=== PATIENT | female | born 1995 | race Caucasian/White ===

== ENCOUNTER → 2022-02-28 | Outpatient (CLI) | payer OTHER, SELFPAY ==
--- NOTE | 2022-02-28 16:12 | RAD_ITS ---
STUDY: X-RAY - RIGHT SHOULDER REASON FOR EXAM: Female, 26 years old. PAIN TECHNIQUE: 4 view(s) of the shoulder. COMPARISON: None. FINDINGS: Normal glenohumeral articulation. Normal acromioclavicular joint. Normal acromion. Normal humeral head and visualized proximal humerus. The soft tissue structures are unremarkable. Normal visualized pulmonary apex. RAD/Shoulder min 2 Views IMPRESSION: Normal x-ray examination of the shoulder. Electronically Signed: Chevy Marshall MD at 0:20 EDT ,
== END | disposition home or self-care (01) ==
PROVIDERS: PCP Family Medicine; Referring Provider Family Medicine; Visit Provider Family Medicine
DX: M25.511 Pain in right shoulder (principal)
CPT/HCPCS: 73030

== ENCOUNTER → 2022-02-28 | Outpatient (CLI) | payer OTHER, SELFPAY ==
[2022-02-28 18:01] LABS: Anion Gap 6 (5-15); BUN 13 mg/dL (7-18); BUN/Creat Ratio 11.8 RATIO (10-20); Calcium,Total 8.8 mg/dL (8.5-10.1); Chloride 109 mmol/L (98-107); Cholesterol 187 mg/dL (200); EST Glomerular Filtration Rate 63 mL/min (>60); Est Glom Filt Rate - Afr Amer 76 mL/min (>60); Glucose 85 mg/dL (74-106); High Density Lipoprotein 39 mg/dL; Potassium 3.6 mmol/L (3.5-5.1); Sodium Level 142 mmol/L (136-145); Thyroid Stim Hormone (TSH) 1.93 uIU/mL (0.358-3.74); Triglycerides 237 mg/dL; Very Low Density Lipoprotein 47 mg/dL (5-40)
== END | disposition home or self-care (01) ==
LOC: MFPLAB 16:23
PROVIDERS: PCP Family Medicine; Visit Provider Family Medicine
DX: Z00.00 Encounter for general adult medical examination without abnormal findings (principal)
CPT/HCPCS: 36415; 80048; 80061; 84403; 84443

== ENCOUNTER → 2022-03-14 | Outpatient (CLI) | payer OTHER, SELFPAY | END | disposition home or self-care (01) | LOC: MFPLAB 15:30 | PROVIDERS: PCP Family Medicine; Referring Provider Family Medicine; Visit Provider Family Medicine | DX: E66.8 Other obesity (principal) | CPT/HCPCS: 36415; 84403 ==

== ENCOUNTER 2022-04-18 15:00 | Outpatient (RCR) | payer OTHER, SELFPAY ==
--- NOTE | 2022-03-14 12:05 | HP.PTEVAL ---
Patient's Visit Information RUBEN BROWNLEE is a 26 year old F referred to Physical Therapy by Dr. Niels Magaña MD with a diagnosis of Right shoulder pain. Date of Evaluation: 03/14/22 Physical Therapist: Kaushal Scott - Visit Plan Frequency: 2x /Week Duration: 6 Weeks Plan: Continue with improving right shoulder PROM, AAROM, AROM, and RTC/scapular strengthening. Use manual therapy and modalities as needed for pain control. He presents with shoulder impingement and possible RTC tear. Will transfer POC to another PT at this time. - Subjective Pt. is a 26 y.o. male who has been having right shoulder pain for several of months but has gotten worse in the last couple of months. 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 His PLOF includes no history of right shoulder pain in the past before this. Pt. is right handed. He had x-ray of his right shoulder which was negative. Pt. denies any neck pain or headaches. He denies any radicular symptoms in his right arm normally. Pt. has difficulty with reaching overhead, reaching out to the side, occasionally sleeping, lifting things overhead, housework, yard work, and work activity. Pt. works for [employer] in [employer]. His goal with physical therapy is to get rid of the shoulder pain. He has never had physical therapy before. Pt. rates right shoulder pain at 7/10 currently, at worst 9/10, at best 5/10 and describes the pain as constant, dull, achy, and sharp. He does not take any pain medication. Pt. PMH includes smoker about 1 pack a day for 11 years and wisdom teeth removed. Pt. hobbies include ice skating, playing video games, and being outdoors. - Objective Palpation- Vague tenderness over anterior right shoulder. Cervical AROM- WNL for all motions. Left shoulder AROM flexion 165 degrees, abduction 165 degrees, ER 88 degrees, IR 70 degrees. Right shoulder AROM flexion 120 degrees, abduction 104 degrees, ER 80 degrees, IR 68 degrees. Left shoulder PROM- WNL for all motions. Right shoulder PROM- flexion 125 degrees, abduction 120 degrees, ER 86 degree, IR 72 degrees. Left shoulder strength flexion 4+/5, abduction 4+/5, ER 5/5, IR 5/5, elbow flexion 5/5, elbow extension 5/5. Right shoulder strength flexion 3-/5, abduction 3-/5, ER 4/5, IR 4+/5, elbow flexion 5/5, elbow extension 5/5. Sensation- Bilateral UE sensation WNL - Special Tests R Shoulder Supine Impingement Test - RC Tear: Positive R Shoulder Lift Off Test - Subscapular Tear: Positive R Shoulder Drop Sign - IS Test: Negative R Shoulder Wolfe Carlos - Impingement: Positive - Balance/Special Test Scores Quick DASH Score: 45.4525 - Goals Goal 1:: Pt. will improve right shoulder AROM flexion and abduction > 150 degrees in order to improve reaching overhead. Goal Time Frame: 4-6 Weeks Goal 2:: Pt. will improve right shoulder strength to 4+/5 for all motions in order to complete ADL's. Goal Time Frame: 4-6 Weeks Goal 3:: Pt. will rate shoulder pain at worst 3/10 with reaching overhead and out to the side. Goal Time Frame: 4-6 Weeks Goal 4:: Pt. will be able to lift at least 20# overhead with right shoulder pain < 3/10. Goal Time Frame: 4-6 Weeks Goal 5:: Pt. will be able to complete ADL's and work activity with right shoulder pain < 3/10. Goal Time Frame: 4-6 Weeks Goal 6:: Pt. will improve Quick Dash score < 30% disability in order to improve ADL's. Goal Time Frame: 4-6 Weeks - Rehabilitation Potential Physical Therapy Diagnosis: Decreased right shoulder ROM, strength, and pain Rehabilitation Potential: Good - Anticipated Interventions Patient/Client Instruction: Educate patient on: Condition, Plan of Care For the Purpose of:: To decrease pain, To increase ROM, To improve ability to perform ADL's, To improve performance and independence with ADL's, To increase flexibility/ROM, To assume or resume ADL's, To improve tolerance to ADL's Therapeutic Exercise to Include: Strength training, Postural training, Passive ROM, Active ROM, Scapular Strength/Stabilization Comment: Continue with improving right shoulder PROM, AAROM, AROM, and RTC/scapular strengthening. For the Purpose of:: To decrease pain, To increase ROM, To improve ability to perform ADL's, To improve performance and independence with ADL's, To increase flexibility/ROM, To improve tolerance to ADL's Manual Therapy Techniques to Include: Mobilization, Passive ROM, Soft tissue mobilization For the Purpose of:: To decrease pain, To increase ROM, To improve performance and independence with ADL's, To increase flexibility/ROM TENS: Yes IF ES: Yes Cryotherapy (ice pack, ice massage): Yes For the Purpose of:: To decrease pain, To decrease swelling/inflammation, To increase ROM, To improve ability to perform ADL's, To increase flexibility/ROM, To improve tolerance to ADL's Thank you for the opportunity to evaluate your patient. For Medicare and Medicare HMO plans, please review the plan of care and approve it. It will need to be FAXED BACK to us at [phone] for Medicare purposes. For Medicare only, by signing this I certify the plan of care. Please let me know if there are questions or concerns regarding this plan of care. Physician Signature: Date:
--- NOTE | 2022-04-18 15:04 | HP.PTREVAL_ITS ---
Dr. Niels Magaña MD, It has been my pleasure to treat RUBEN BROWNLEE over the last 7 visits for Right shoulder pain. Please see the progress note below for an update on the physical therapy plan of care! Subjective: Patient goes to see MD directly after this apt. Patient reports that the shoulder is better but its great. It is not constantly hurting but still has its days. Pain is along the suprapsinatus in the shoulder. No pain radiating down the arm. Has noticed decreased fulfillment representative strength in the hand. He has not had any injections in the shoulder- no MRI. he is doing bands at home IR/ER, and extension of the elbow (Green). Objective/Function: Posture: FH, RS can correct but does not maintain- guards due to pain with testing. Palpation: tender along supraspinatus, ROM: AROM- Shoulder Flexion: 140 degrees, Extn: WFL, Abd: 110 degrees, IR/ER: WFL. Strength: Scap: fair minus, all motions: 4/5 throughout available range. Elbow: 5/5, Airline Radio Operator: Left: 100 Right: 80. - Special Tests. R Shoulder Supine Impingement Test - RC Tear: Positive. R Shoulder Lift Off Test - Subscapular Tear: Positive. R Shoulder Drop Sign - IS Test: Negative. R Shoulder Wolfe Carlos - Impingement: Positive Plan Plan: Return to MD for further evaluation. Balance/Gait/Functional tests - Balance/Special Test Scores Quick DASH Score: 29.5450 Goals Goal 1:: Pt. will improve right shoulder AROM flexion and abduction > 150 degrees in order to improve reaching overhead. Goal Time Frame: 4-6 Weeks Goal Progress: Progressing Goal 2:: Pt. will improve right shoulder strength to 4+/5 for all motions in order to complete ADL's. Goal Time Frame: 4-6 Weeks Goal Progress: Progressing Goal 3:: Pt. will rate shoulder pain at worst 3/10 with reaching overhead and out to the side. Goal Time Frame: 4-6 Weeks Goal Progress: Progressing Goal 4:: Pt. will be able to lift at least 20# overhead with right shoulder pain < 3/10. Goal Time Frame: 4-6 Weeks Goal Progress: Progressing Goal 5:: Pt. will be able to complete ADL's and work activity with right shoulder pain < 3/10. Goal Time Frame: 4-6 Weeks Goal Progress: Progressing Goal 6:: Pt. will improve Quick Dash score < 30% disability in order to improve ADL's. Goal Time Frame: 4-6 Weeks Goal Progress: Progressing Anticipated Interventions Patient/Client Instruction: Educate patient on: Condition, Plan of Care For the Purpose of:: To decrease pain, To increase ROM, To improve ability to perform ADL's, To improve performance and independence with ADL's, To increase flexibility/ROM, To assume or resume ADL's, To improve tolerance to ADL's Therapeutic Exercise to Include: Strength training, Postural training, Passive ROM, Active ROM, Scapular Strength/Stabilization Comment: Continue with improving right shoulder PROM, AAROM, AROM, and RTC/scapular strengthening. For the Purpose of:: To decrease pain, To increase ROM, To improve ability to perform ADL's, To improve performance and independence with ADL's, To increase flexibility/ROM, To improve tolerance to ADL's Manual Therapy Techniques to Include: Mobilization, Passive ROM, Soft tissue mobilization For the Purpose of:: To decrease pain, To increase ROM, To improve performance and independence with ADL's, To increase flexibility/ROM TENS: Yes IF ES: Yes Cryotherapy (ice pack, ice massage): Yes For the Purpose of:: To decrease pain, To decrease swelling/inflammation, To increase ROM, To improve ability to perform ADL's, To increase flexibility/ROM, To improve tolerance to ADL's Please do not hesitate to contact me at [phone] by phone or if you have questions or concerns regarding this new plan of care! Sincerely, Eunice Goode DPT
== END 2022-04-18 19:00 | disposition home or self-care (01) ==
LOC: PT 15:00
PROVIDERS: PCP Family Medicine; Referring Provider Family Medicine; Visit Provider Family Medicine
DX: M25.519 Pain in unspecified shoulder (principal)
CPT/HCPCS: 97110; 97140; 97161; 97164

== ENCOUNTER → 2022-04-18 | Outpatient (CLI) | payer OTHER, SELFPAY | END | disposition home or self-care (01) | PROVIDERS: Visit Provider Family Medicine | DX: E66.8 Other obesity (principal) | CPT/HCPCS: 36415; 84403 ==

== ENCOUNTER → 2022-05-30 | Outpatient (CLI) | payer OTHER, SELFPAY ==
--- NOTE | 2022-05-30 16:22 | RAD_ITS ---
HISTORY: FOREIGN BODY OF LEG. TECHNIQUE: XR Femur Min 2 Views. COMPARISON: None. FINDINGS: BONES : No acute fracture identified. Mineralization unremarkable. JOINTS: No dislocation. Joint spaces maintained. SOFT TISSUES: Multiple small metallic foreign bodies in the anterolateral soft tissues of the thigh. RAD/Femur Min 2 Views IMPRESSION: No acute fracture or dislocation identified in the left femur.Small foreign bodies in the soft tissues. Electronically Signed: Celina Lopez MD at 15:20 EDT ,
== END | disposition home or self-care (01) ==
PROVIDERS: PCP Family Medicine; Referring Provider Family Medicine; Visit Provider Family Medicine
DX: S80.852A Superficial foreign body, left lower leg, initial encounter (principal); R79.89 Other specified abnormal findings of blood chemistry
CPT/HCPCS: 36415; 73552; 84403

== ENCOUNTER → 2022-06-20 | Outpatient (CLI) | payer OTHER, SELFPAY ==
--- NOTE | 2022-06-20 17:03 | MRI_ITS ---
STUDY: MRI RIGHT SHOULDER REASON FOR EXAM: Right shoulder pain for one year, decreased range of motion, lifting injury. TECHNIQUE: Standardized fat and water weighted pulse sequences were obtained in all 3 orthogonal planes. COMPARISON: None. FINDINGS: There is mild supraspinatus/infraspinatus tendinosis (T2 coronal images 10-13) without discrete tendon tear. Normal subscapularis tendon. Normal teres minor tendon. Normal supraspinatus muscle. Normal infraspinatus muscle. Normal subscapularis muscle. Normal teres minor muscle. Normal glenohumeral articulation. Normal humeral head and visualized proximal humerus. Normal biceps labral complex. Normal intracapsular long biceps tendon. Normal labrum. Normal capsulo- ligamentous complex. Normal acromioclavicular articulation. There is a Type I morphology (flat undersurface), with a neutral orientation. There is no subacromial-subdeltoid bursal fluid. Normal visualized coracohumeral and coracoacromial ligaments. Normal deltoid muscle. Normal trapezius muscle. MRI/Upper Ext Joint Only(Routine) IMPRESSION: Mild supraspinatus/infraspinatus tendinosis without demonstrated rotator cuff tear. Electronically Signed: Ja Vigil MD at 6:58 EDT ,
== END | disposition home or self-care (01) ==
LOC: MRI 16:44
PROVIDERS: PCP Family Medicine; Visit Provider Family Medicine
DX: M25.511 Pain in right shoulder (principal)
CPT/HCPCS: 73221

== ENCOUNTER → 2022-11-29 | Outpatient (CLI) | payer OTHER, SELFPAY ==
[2022-11-29 18:11] LABS: ALB/GLOB Ratio 1.1 RATIO (0.9-2.4); AST(SGOT) 61 U/L (15-37); Alanine Aminotransfer ALT/SGPT 148 U/L (16-61); Albumin, Serum 4.2 g/dL (3.2-5.0); Alkaline Phosphatase 104 U/L (45-117); Anion Gap 12 (5-15); BUN 10 mg/dL (7-18); BUN/Creat Ratio 9.4 RATIO (10-20); Calcium,Total 9.4 mg/dL (8.5-10.1); Chloride 108 mmol/L (98-107); Creatinine, Serum 1.06 mg/dL (0.70-1.30); EST Glomerular Filtration Rate 88 mL/min (>60); Est Glom Filt Rate - Afr Amer 106 mL/min (>60); Follicle Stimulating Hormone 4.4 mIU/mL; Globulin 3.7 g/dL (2.2-4.2); Glucose 99 mg/dL (74-106); Luteinizing Hormone 2.6 mIU/mL; Potassium 3.5 mmol/L (3.5-5.1); Prolactin 11.2 ng/mL; Protein, Total 7.9 g/dL (6.4-8.2); Sodium Level 143 mmol/L (136-145); T4 Free Direct 0.82 ng/dL (0.76-1.46); Thyroid Stim Hormone (TSH) 3.03 uIU/mL (0.358-3.74)
[2022-12-04 11:09] LABS: Testosterone, % Free 2.12 % (1.50-4.20); Testosterone, Free 4.52 ng/dL (5.00-21.00)
[2022-12-06 19:00] LABS: Insulin Like Growth Factor 130 ng/mL (101-307); Testosterone, Total 213 ng/dL (264-916)
== END | disposition home or self-care (01) ==
LOC: MTLAB 16:30
PROVIDERS: PCP Family Medicine; Referring Provider Internal Medicine Endocrinology, Diabetes & Metabolism; Visit Provider Internal Medicine Endocrinology, Diabetes & Metabolism
DX: E29.1 Testicular hypofunction (principal)
CPT/HCPCS: 36415; 80053; 82533; 83001; 83002; 84146; 84305; 84402; 84403; 84439; 84443

== ENCOUNTER → 2023-05-22 | Outpatient (CLI) | payer OTHER, SELFPAY ==
[2023-05-22 18:17] LABS: Absolute Lymphocyte Count 2.95 X10^3/uL (0.83-4.51); Absolute Neutrophil Count 10.5 X10^3/uL (2.0-7.7); Basophil# 0.04 X10^3/uL; Basophil% 0.3 % (0-1); Eosinophil# 0.03 X10^3/uL; Eosinophils% 0.2 % (0-5); Hematocrit 51.3 % (40-54); Hemoglobin 17.4 g/dL (13.0-16.5); Lymphocyte # 2.95 X10^3/ul (0.83-4.51); Lymphocyte % 20.7 % (19-41); Mean Corp Hgb Conc 33.9 g/dL (32-36); Mean Corpuscular Hgb 31.9 pg (27.0-32.0); Mean Corpuscular Volume 94.1 fL (80-94); Mean Platelet Vol. 11.1 fl (6.2-12.0); Monocyte% 4.9 % (0-10); NRBC Flagged by Analyzer 0 % (0-5); Neutrophil # 10.52 X10^3/uL (2.7-7.7); Neutrophil % 73.6 % (47-70); Platelet Count 331 K/mm3 (150-450); RBC Distribution Width CV 12.8 % (11.6-14.6); RBC Distribution Width SD 43.7 fl (35.1-43.9); Red Blood Count 5.45 M/mm3 (4.6-6.2); White Blood Count 14.3 K/mm3 (4.4-11.0)
[2023-05-30 11:09] LABS: Testosterone, Free 11.08 ng/dL (5.00-21.00); Testosterone, Total 326 ng/dL (264-916)
== END | disposition home or self-care (01) ==
LOC: MFPLAB 16:34
PROVIDERS: PCP Family Medicine; Visit Provider Internal Medicine Endocrinology, Diabetes & Metabolism
DX: E29.1 Testicular hypofunction (principal)
CPT/HCPCS: 36415; 84402; 84403; 85025

== ENCOUNTER 2024-05-19 07:30 | Day surgery (SDC) | payer OTHER, SELFPAY ==
--- NOTE | 2024-05-13 12:23 | EKG12_ITS ---
Test Reason : PREOP Blood Pressure : / mmHG Vent. Rate : 069 BPM Atrial Rate : 069 BPM P-R Int : 144 ms QRS Dur : 088 ms QT Int : 408 ms P-R-T Axes : 038 046 038 degrees QTc Int : 437 ms Normal sinus rhythm with sinus arrhythmia Normal ECG Confirmed by SANDER GALINDO, PONCHO ([id number]), editorial specialist JUAN BENAVIDEZ ([id number]) on 05/18/2024 1:32:39 PM Referred By: Viktor Galvan Confirmed By:JOSELUIS BOUCHER MD
[2024-05-13 13:03] LABS: Absolute Lymphocyte Count 3.58 X10^3/uL (0.83-4.51); Absolute Neutrophil Count 6.1 X10^3/uL (2.0-7.7); Basophil# 0.06 X10^3/uL; Basophil% 0.6 % (0-1); Eosinophil# 0.11 X10^3/uL; Hematocrit 46.9 % (40-54); Hemoglobin 15.6 g/dL (13.0-16.5); Lymphocyte # 3.58 X10^3/ul (0.83-4.51); Lymphocyte % 33.2 % (19-41); Mean Corp Hgb Conc 33.3 g/dL (32-36); Mean Corpuscular Hgb 32.7 pg (27.0-32.0); Mean Corpuscular Volume 98.3 fL (80-94); Mean Platelet Vol. 10.6 fl (6.2-12.0); Monocyte# 0.89 X10^3/uL; Monocyte% 8.3 % (0-10); NRBC Flagged by Analyzer 0 % (0-5); Neutrophil # 6.12 X10^3/uL (2.7-7.7); Neutrophil % 56.8 % (47-70); Platelet Count 225 K/mm3 (150-450); RBC Distribution Width CV 12.8 % (11.6-14.6); RBC Distribution Width SD 46.7 fl (35.1-43.9); Red Blood Count 4.77 M/mm3 (4.6-6.2); White Blood Count 10.8 K/mm3 (4.4-11.0)
[2024-05-18 11:09] LABS: Testosterone, % Free 2.41 % (1.50-4.20); Testosterone, Free 6.89 ng/dL (5.00-21.00); Testosterone, Total 286 ng/dL (264-916)
[2024-05-19] VITALS (11 sets, daily range): BP systolic 120–136; BP diastolic 70–88; PULSE 52–82; RESP 16–18; TEMP 36.2–36.9; O2SAT 90–98; BMI 31.6
[2024-05-19] MEDS: Lactated Ringers 1,000 ML 15 ML IV ×2 (08:07→11:36)
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
[2024-05-19] MEDS: Cefazolin 2 GM in 0.9% Normal Saline (100mL Bag) 100 ML IV (09:41)
[2024-05-19] MEDS: Epinephrine (1 mg/ml) 1 MG/ML VIAL (10:12)
--- NOTE | 2024-05-19 10:47 | PCM.OPRPT ---
Problems Associated Problem List Diagnoses (1) Tendinosis of right shoulder: (2) Impingement of right shoulder: (3) Bursitis of right shoulder: Report of Operation Date of Procedure: 05/19/24 Pre-Operative Diagnosis: Right shoulder bursitis and impingement syndrome Post-Operative Diagnosis: Same Surgery/Procedure Performed:: Right shoulder arthroscopy subacromial decompression and debridement Surgeon: Viktor Galvan Type of Anesthesia: Block,Regional and General Anesthesiologist: Sumanth Alvarez Estimated Blood Loss (mL): 25 Description of Procedure: Patient brought to the operating room theater. Placed supine on the table. General anesthesia induced. 2 g IV Ancef administered prior to the start of the procedure. Patient transferred right side up lateral decubitus beanbag positioner. Axillary roll used. All bony prominences padded. SCDs on the legs. Upper extremity prepped and draped in the usual sterile fashion with chlorhexidine-based prep solution allowing over 3 minutes drying time prior to draping. Preoperative timeout performed confirm the site patient and surgery. Arm and 10 pounds of inline traction with 35 degrees of abduction. Began by inserting the arthroscope into the intra-articular portion of the shoulder through a standard posterior arthroscopy portal. Did a full diagnostic arthroscopy. Cartilage on the glenoid and humeral head appeared normal. No loose bodies axillary recess entered no loose bodies normal undersurface the rotator cuff tendon as well as subscapularis and biceps was normal normal tang. Arthroscope withdrawn inserted the subacromial space. I used a standard anterior arthroscopy portal through the rotator interval as well as an accessory lateral portal. There is a mild amount of inflammatory appearing bursitis. Subacromial space was quite tight. Bursectomy performed down to the lateral gutters. Arthroscopy pictures taken and saved throughout the case. Rotator cuff probed and no tears found. Anterolateral leading edge of the acromion was downsloping I performed a subacromial decompression down to flat margins using a high-speed bur instrument for approximately 4 mm. Case terminated wound thoroughly irrigated. Portals closed with 3-0 Monocryl suture. Skin cleaned with wet and dry dressing followed by application of Steri-Strips Adaptic 4 x 4 gauze ABD dressing cloth tape and an abduction pillow sling for the upper extremity. Patient woken up from the general anesthetic transferred off the operating room table and taken postanesthetic care unit in stable condition. All sponge needle instrument counts were correct no complications. cpt 92065? Complications none Admit VTE Documentation VTE Present on Admission: No VTE Mechan Device Prophylaxis: SCD's VTE Pharm Prophylaxis ordered?: No Reason prophylaxis not ordered:: Treatment Not Indicated Procedures Musculoskeletal 20xxx-29xxx: Other Procedure See Report
--- NOTE | 2024-05-19 10:53 | DCINST_ITS ---
Discharge Instructions Diet Discharge Diet: No restrictions Activity Ice area for (Minutes): 10 Lifting Restrictions: pendulums exercises only Additional Activity Instructions:: hand wrist elbow rom as tolerated Dressing / Incision Call your doctor if your incision/area has: Continuous Slow Oozing, Sudden Increased Bleeding, Increased Pain/ Swelling, Increased Redness, Foul Smelling Discharge and Swelling at the incision site Call your doctor if you observe: Fever of 101 or Higher and Numbness or Tingling Remove Dressing in: leave in place till F/U Cleanse incision/area with: Do not get Incision Wet Follow Up Care Please Follow Up With: Viktor Galvan MD When: 1 day and 2 weeks Test Results: Test results from this visit will be discussed in further detail at your follow- up appointment, if applicable. Discharge Plan Admission Attending Provider: Viktor Galvan Primary Care Provider: DONITA VIERA Consulting Providers: Mitchell Nichols; Nazario Beaver Instructions Print Language: Georgian Discharge Orders/Prescriptions Prescriptions: New oxycodone-acetaminophen [Endocet] 5-325 mg tablet 1 tab PO Q6H MDD 6 PRN (Reason: pain) 5 Days Qty: 20 0RF No Action omeprazole 20 mg capsule,delayed release(DR/EC) 20 mg PO DAILY Nicotrol NS 10 mg/mL spray,non-aerosol 2 spray intranasal Q60M PRN (Reason: nicotine cravings) Patient Comments: [NO ORIGINAL SIG] hydroxyzine pamoate 25 mg capsule 25 mg PO QHS clonidine HCl 0.1 mg tablet 0.1 mg PO BID paroxetine HCl 10 mg tablet 10 mg PO QDAY Alive Men's 50 Plus Multivit 120 mcg-150 mcg -50 mg tablet,chewable 1 tab PO DAILY magnesium 200 mg tablet 200 mg PO DAILY omega 4-tah-hwy-fish oil [Fish Oil] 300-1,000 mg capsule 1 cap PO DAILY Tart Richmond Extract 1,000 mg capsule 1,000 mg PO DAILY ibuprofen 600 mg tablet 600 mg PO Q8H PRN PRN (Reason: pain) testosterone [AndroGel] 20.25 mg/1.25 gram (1.62 %) gel in metered-dose pump 1 pump topical .5 days per week Qty: 75 5RF Referrals / Follow Up: Niels Magaña MD [Med Staff - Active Staff] - Viktor Galvan MD [Med Staff - Active Staff] - Disposition Disposition (needs filled in before D/C Order can be placed): Home, Self Care
--- NOTE | 2024-05-19 10:55 | PCM.POST.ANE ---
Anesthesia: Postop Eval I Current Vital Signs Temperature: 98.4 F Pulse Rate: 79 Blood Pressure: 129/88 Respiratory Rate: 18 Pulse Ox: 97 Oxygen Delivery Method: Room Air Assessment Airway patent: Yes Spontaneous unlabored respirations: Yes Mental status: Awake and Calm nausea: No Vomiting: No Anesthesia Complication: No Fluid Hydration Crystalloid volume administer (ml): 800 Total IV fluid infused: 800 Progress Note Anesthesia document: Postop Eval 1 completed: Yes
--- NOTE | 2024-05-19 11:18 | PCM.POSTANE2 ---
Anesthesia Postop Eval I Sum Postop Eval Completion status Anesthesia document: Postop Eval 1 completed: Yes Anesthesia Postop Eval I Summary Anesthesia Postop Eval I Summary: Anesthesia Postop Eval I: Assessment Summary Airway patent Yes 05/19/24 11:16 Spontaneous unlabored Yes 05/19/24 11:16 respirations Mental status Awake,Calm 05/19/24 11:16 nausea No 05/19/24 11:16 Vomiting No 05/19/24 11:16 Anesthesia Postop Eval I: Fluid Summary Crystalloid volume administer 800 05/19/24 11:16 (ml) Colloids volume administered ( ml) Blood Product volume administered (ml) Total IV fluid infused 800 05/19/24 11:16 Anesthesia Postop Eval I: Summary Notes Anesthesia Complication No 05/19/24 11:16 Anesthesia Complication Comment: Post-operative progress note Anesthesia: Postop Eval II Evaluation Mental status: Awake Pain Level: 0 nausea: No Vomiting: No
[2024-05-19] MEDS: HYDROcodone Bitartrate/Apap 5/325 Tablet PO (12:20)
== END 2024-05-19 13:36 | disposition home or self-care (01) ==
LOC: SDC 07:31 → AC 07:32
PROVIDERS: Internal Medicine Endocrinology, Diabetes & Metabolism; Referring Provider Orthopaedic Surgery Sports Medicine; Visit Provider Orthopaedic Surgery Sports Medicine
PROC: (CPT 29805; principal; 2024-05-19 09:20)
DX: M75.51 Bursitis of right shoulder (principal); M25.811 Other specified joint disorders, right shoulder; M67.813 Other specified disorders of tendon, right shoulder; M75.41 Impingement syndrome of right shoulder; F17.210 Nicotine dependence, cigarettes, uncomplicated; F41.9 Anxiety disorder, unspecified; F32.A Depression, unspecified; K21.9 Gastro-esophageal reflux disease without esophagitis; Z79.899 Other long term (current) drug therapy
CPT/HCPCS: 29822; 29826; 36415; 84402; 84403; 85025; 93005; J7120; J2405

== ENCOUNTER → 2024-05-20 | Outpatient (CLI) | payer OTHER, SELFPAY ==
--- NOTE | 2024-05-20 13:30 | RAD_ITS ---
STUDY: X-RAY - LEFT SHOULDER REASON FOR EXAM: Male, 29 years old. Pain. TECHNIQUE: 4 views of the left shoulder. COMPARISON: None. FINDINGS: Normal glenohumeral articulation. Normal acromioclavicular joint. Normal acromion. Normal humeral head and visualized proximal humerus. The soft tissue structures are unremarkable. There is no demonstrated fracture. Normal visualized pulmonary apex. RAD/Shoulder min 2 Views IMPRESSION: Normal x-ray examination of the left shoulder. Electronically Signed: Shaun Chun MD at 14:53 EDT ,
== END | disposition home or self-care (01) ==
LOC: MTRAD 13:30
PROVIDERS: Referring Provider Orthopaedic Surgery Sports Medicine; Visit Provider Orthopaedic Surgery Sports Medicine
DX: M25.512 Pain in left shoulder (principal)
CPT/HCPCS: 73030

== ENCOUNTER 2024-12-26 11:47 | Emergency (ER) | payer OTHER, SELFPAY ==
[2024-12-26 11:49] VITALS: BP 144/86; PULSE 88; RESP 15; TEMP 36.4; O2SAT 99; BMI 31.0
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
[2024-12-26] MEDS: Ketorolac 15 MG/ML Vial IM (12:11)
--- NOTE | 2024-12-26 12:22 | RAD_ITS ---
PROCEDURE: KNEE 4 OR MORE VIEWS REASON FOR EXAM: 29-year-old male, left knee pain, history of bursitis with recent improvement, now symptoms returned. TECHNIQUE: 4 view(s) of the left knee COMPARISON: None. FINDINGS: No fracture. No suspicious bone lesion. Normal alignment. No effusion. Soft tissues are unremarkable. RAD/Knee 4 or More Views IMPRESSION: No acute finding on radiographic imaging. Reading Location: [id number]
[2024-12-26] MEDS: predniSONE 20 MG Tablet 60 MG PO (13:21)
== END 2024-12-26 13:42 | disposition home or self-care (01) ==
PROVIDERS: Emergency Provider Emergency Medicine; Visit Provider Emergency Medicine
DX: M25.562 Pain in left knee (principal)
CPT/HCPCS: 73564; 96372; 99282

== ENCOUNTER → 2025-01-06 | Outpatient (CLI) | payer OTHER, SELFPAY ==
[2025-01-06 12:13] LABS: Absolute Lymphocyte Count 4.22 X10^3/uL (0.83-4.51); Absolute Neutrophil Count 6.7 X10^3/uL (2.0-7.7); Basophil# 0.06 X10^3/uL; Basophil% 0.5 % (0-1); Eosinophil# 0.07 X10^3/uL; Eosinophils% 0.6 % (0-5); Hematocrit 47.8 % (40-54); Hemoglobin 16.4 g/dL (13.0-16.5); Lymphocyte # 4.22 X10^3/ul (0.83-4.51); Lymphocyte % 35.9 % (19-41); Mean Corp Hgb Conc 34.3 g/dL (32-36); Mean Corpuscular Hgb 32.8 pg (27.0-32.0); Mean Corpuscular Volume 95.6 fL (80-94); Mean Platelet Vol. 11.2 fl (6.2-12.0); Monocyte# 0.72 X10^3/uL; Monocyte% 6.1 % (0-10); NRBC Flagged by Analyzer 0 % (0-5); Neutrophil # 6.65 X10^3/uL (2.7-7.7); Neutrophil % 56.6 % (47-70); Platelet Count 247 K/mm3 (150-450); RBC Distribution Width CV 13.3 % (11.6-14.6); RBC Distribution Width SD 46.8 fl (35.1-43.9); White Blood Count 11.8 K/mm3 (4.4-11.0)
== END | disposition home or self-care (01) ==
LOC: MTLAB 10:23
PROVIDERS: Referring Provider Internal Medicine Endocrinology, Diabetes & Metabolism; Visit Provider Internal Medicine Endocrinology, Diabetes & Metabolism
DX: E29.1 Testicular hypofunction (principal)
CPT/HCPCS: 36415; 84402; 84403; 85025